=== PATIENT | male | born 2000 | race Caucasian/White ===

== ENCOUNTER 2019-05-28 13:33 | Emergency (ER) | payer BC ==
--- NOTE | 2019-05-28 16:17 | UC ---
Hand/Wrist HPI - HPI Summary HPI Summary: 18-year-old male comes in with a chief complaint of right wrist pain. Is playing basketball and he fell and injured his right wrist. No complaint of any weakness or numbness. Pain is the worst in the snuffbox on the right. He is able to move his fingers and wrist but with pain. - History Of Current Complaint Chief Complaint: UCUpperExtremity Stated Complaint: RIGHT WRIST INJURY Time Seen by Provider: 05/28/19 16:01 Pain Intensity: 5 - Allergies/Home Medications Allergies/Adverse Reactions: Allergies Allergy/AdvReac Type Severity Reaction Status Date / Time No Known Allergies Allergy Verified 05/28/19 15:12 Home Medications: Home Medications NK [No Home Medications Reported] 05/28/19 [History Confirmed 05/28/19] PMH/Surg Hx/FS Hx/Imm Hx Previously Healthy: Yes - Surgical History Surgical History: None - Family History Known Family History: Positive: Non-Contributory - Social History Alcohol Use: Rare Substance Use Type: None Smoking Status (MU): Never Smoked Tobacco Review of Systems All Other Systems Reviewed And Are Negative: Yes Constitutional: Positive: Negative Skin: Positive: Negative Eyes: Positive: Negative ENT: Positive: Negative Respiratory: Positive: Negative Cardiovascular: Positive: Negative Gastrointestinal: Positive: Negative Motor: Positive: Negative Neurovascular: Positive: Negative Musculoskeletal: Positive: Other: - SEE HPI Neurological: Positive: Negative Psychological: Positive: Negative Is Patient Immunocompromised?: No Physical Exam Triage Information Reviewed: Yes Appearance: Well-Appearing, No Pain Distress, Well-Nourished Vital Signs: Initial Vital Signs Temp 98.7 F 05/28/19 15:05 Pulse 46 05/28/19 15:05 Resp 16 05/28/19 15:05 BP 118/60 05/28/19 15:05 Pulse Ox 100 05/28/19 15:05 Vital Signs Reviewed: Yes Eye Exam: Normal Eyes: Positive: Conjunctiva Clear Neck: Positive: Supple Respiratory: Positive: No respiratory distress Musculoskeletal: Positive: Strength Intact, Other: - Patient's most tender to palpation in the right snuffbox. He can move his fingers. Normal capillary refill. No sensation deficit. Neurological: Positive: Alert Psychological: Positive: Age Appropriate Behavior Skin Exam: Normal Hand/Wrist Course/Dx - Course Course Of Treatment: Buildings Painter: Troy Isaac, ([id number]) Carpentry Professional: ANDREA (ANDREA) Report Date: 05/28/2019 16:11:00 Report Status: Final Start of Report Content Patient Name: CHAO GUDINO Medical Record#: [id number] Ordering Physician: Marcell Rice MD Acct.#: [id number] : 2000 Age : 18 Sex: M [place] [facility] [place]: 05/28/19 1512 ADM Status : REG ER Order Information: WRIST RIGHT 3+ VWS Accession Number: [id number] CPT : 45994 Clinical history: Pain. COMPARISON: None. TECHNIQUE: 3 radiographic views of the right wrist were obtained. FINDINGS: The bone mineralization is within normal limits. There is a nondisplaced transversely oriented fracture extending through the mid pole of the scaphoid. Anatomic alignment is maintained. The joint spaces are otherwise maintained. IMPRESSION: Nondisplaced scaphoid fracture as above. <Electronically signed by Troy Isaac MD in OV> 05/28/191607 Dictated By: Troy Isaac MD Dictated Date/Time: 05/28/191606 Transcribed Date/ Time: 05/28/191606 Copy to: CC:Rico Trivedi MD; Marcell Rice MD Imaging - [facility] Imaging - [facility] [address] [place] [address] ph ([phone]) ph [phone]) ph ) End of Report Content I discussed the x-ray with the patient. Patient is placed a thumb spica splint by nursing patient neurovascular intact after placement of thumb spica. Patient will follow-up with orthopedics. I did let the patient know that it was essential for him to follow up due to the vascularity of the scaphoid bone and the risk for incomplete healing. - Differential Dx/Diagnosis Provider Diagnosis: Fracture of scaphoid of right wrist Discharge ED - Sign-Out/Discharge Documenting (check all that apply): Patient Departure All imaging exams completed and their final reports reviewed: Yes - Discharge Plan Condition: Stable Disposition: HOME Patient Education Materials: Scaphoid Fracture (ED) Referrals: Rico Trivedi MD [Primary Care Provider] - Ab Andujar MD [Medical Doctor] - Additional Instructions: FOLLOW UP WITH ORTHOPEDICS SOON POSSIBLE. GET REEVALUATED SOONER IF NOT IMPROVING OR WORSE OR ANY QUESTIONS OR CONCERNS. - Billing Disposition and Condition Condition: STABLE Disposition: Home
== END 2019-05-28 16:35 | disposition home or self-care (01) ==
LOC: UCCORT 13:33
DX: S62.024A Nondisplaced fracture of middle third of navicular [scaphoid] bone of right wrist, initial encounter for closed fracture (principal); W19.XXXA Unspecified fall, initial encounter; Y93.67 Activity, basketball; Y92.9 Unspecified place or not applicable
CPT/HCPCS: 99202; G0463